=== PATIENT | female | born 1965 | race Caucasian/White ===

== ENCOUNTER → 2016-10-12 | Outpatient (CLI) | payer BC ==
--- NOTE | 2016-10-15 12:56 | MM ---
Reason for exam: screening (asymptomatic). Last mammogram was performed 10 years and 6 months ago. History: Took hormonal contraceptives for 1 year beginning at age 17. Physical Findings: A clinical breast exam by your physician is recommended on an annual basis and results should be correlated with mammographic findings. MG 3D Screening Mammo W/Cad Bilateral CC and MLO view(s) were taken. Prior study comparison: April 03, 2006, mammogram, performed at [facility]. There are scattered fibroglandular densities. Finding: There are typically benign round calcifications in the left breast. There is no discrete abnormality. ASSESSMENT: Benign, BI-RAD 2 RECOMMENDATION: Routine screening mammogram of both breasts in 1 year.
== END | disposition home or self-care (01) ==
LOC: RADMAMWWP 08:41
PROVIDERS: ATTEND Family Medicine
DX: Z12.31 Encounter for screening mammogram for malignant neoplasm of breast (principal)
CPT/HCPCS: 77063; G0202

== ENCOUNTER → 2017-05-03 | Outpatient (CLI) | payer BC ==
--- NOTE | 2017-05-03 19:59 | MR ---
EXAMINATION TYPE: MR lumbar spine wo con DATE OF EXAM: 05/03/2017 COMPARISON: NONE HISTORY: Acute back pain/dee hips x 3 weeks CONTRAST: 0 mL intravenous Gadavist. TECHNIQUE: Multiplanar, multisequence images of the lumbar spine were acquired. FINDINGS: Cord terminates L1 L5-S1: No significant disc bulge or disc herniation. No spinal canal stenosis. No foraminal stenosi s. . L4-L5: Broad-based disc bulge is present. This has moderate anterior thecal sac flattening. Facet hyp ertrophy with ligamentum flavum laxity has posterior lateral thecal sac compression and congenitally short pedicles are present. There is a grade 1 spondylolisthesis with disc uncovering. These factors are contributing to spinal canal stenosis. There is moderate right foraminal stenosis. L3-L4: No significant disc bulge or disc herniation. No spinal canal stenosis. No foraminal stenosi s. Facet hypertrophy with ligamentum flavum laxity has some posterior lateral thecal sac compression and mild lateral canal narrowing.. L2-L3: No significant disc bulge or disc herniation. No spinal canal stenosis. No foraminal stenosi s. Facet hypertrophy is posterior lateral thecal sac compression.. L1-L2: No significant disc bulge or disc herniation. No spinal canal stenosis. No foraminal stenosi s. . T12-L1: No significant disc bulge or disc herniation. No spinal canal stenosis. No foraminal stenos is. . IMPRESSION: 1. Grade 1 spondylolisthesis with disc uncovering and disc bulge, facet hypertrophy and ligamentum fl avum laxity and congenitally short pedicles contributing to moderate spinal canal stenosis L4-5. 2. Facet hypertrophy with ligamentum flavum laxity contributing to some lateral canal narrowing L3-4 and L2-3. 3. Right foraminal stenosis L4-5 secondary to facet hypertrophy and disc bulge.
== END | disposition home or self-care (01) ==
LOC: RADMRIMAIN 17:45
PROVIDERS: ATTEND Family Medicine
DX: M48.061 Spinal stenosis, lumbar region without neurogenic claudication (principal); M99.73 Connective tissue and disc stenosis of intervertebral foramina of lumbar region; M43.16 Spondylolisthesis, lumbar region; M51.26 Other intervertebral disc displacement, lumbar region
CPT/HCPCS: 72148

== ENCOUNTER 2019-01-12 13:55 | Emergency (ER) | payer OTHER ==
[2019-01-12 14:22] VITALS: RESP 18
[2019-01-12] MEDS ORDERED: IBUPROFEN 400 MG TAB PO STA (14:51)
--- NOTE | 2019-01-12 15:42 | XR ---
Lumbar spine HISTORY: Trauma and pain 3 views of the lumbar spine, correlation MR August 31, 2017 Patient shows posterior fusion changes at L4 -5, intervertebral spacing block is present. Anterolisthesis grade 1 L4-5. There is loss of disc heig ht at intervertebral levels. Lumbar vertebral bodies show preserved height. Laminectomies present at L4 and L5. IMPRESSION: Postop changes. No acute fracture or subluxation.
--- NOTE | 2019-01-12 15:43 | XR ---
Cervical spine HISTORY: Trauma, pain 5 views of the cervical spine Cervical vertebral bodies show preserved height and bone mineralization. Minimal anterolisthesis grad e 1 C3-4. Loss of disc height present at C4-5 and C5-6, there is associated spondylosis. Foraminal en croachment is present bilaterally at C4-5 and C5-6. Prevertebral soft tissues are normal. There is fa cet arthropathy change. IMPRESSION: No acute fracture or subluxation. Degenerative disc disease.
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
[2019-01-12 15:58] VITALS: BP 153/89; PULSE 66; TEMP 98
== END 2019-01-12 15:58 | disposition home or self-care (01) ==
LOC: EC 13:55
DX: M54.2 Cervicalgia (principal); M79.641 Pain in right hand; M79.642 Pain in left hand; R68.84 Jaw pain; R10.30 Lower abdominal pain, unspecified; Z98.1 Arthrodesis status; V43.52XA Car driver injured in collision with other type car in traffic accident, initial encounter; Y93.89 Activity, other specified; Y92.410 Unspecified street and highway as the place of occurrence of the external cause
CPT/HCPCS: 72050; 72100; 99284

== ENCOUNTER → 2019-05-12 | Outpatient (CLI) | payer OTHER ==
--- NOTE | 2019-05-13 14:52 | MM ---
Reason for exam: screening (asymptomatic). Last mammogram was performed 2 years and 7 months ago. History: Family history of breast cancer in maternal grandmother at age 65 and breast cancer in maternal aunt at age 58. Took hormonal contraceptives for 1 year beginning at age 17. Physical Findings: A clinical breast exam by your physician is recommended on an annual basis and results should be correlated with mammographic findings. MG 3D Screening Mammo W/Cad Bilateral CC and MLO view(s) were taken. Prior study comparison: October 12, 2016, bilateral MG 3d screening mammo w/cad. There are scattered fibroglandular densities. No significant changes when compared with prior studies. ASSESSMENT: Benign, BI-RAD 2 RECOMMENDATION: Routine screening mammogram of both breasts in 1 year.
== END | disposition home or self-care (01) ==
LOC: RADMAMWWP 13:22
PROVIDERS: ATTEND Family Medicine
DX: Z12.31 Encounter for screening mammogram for malignant neoplasm of breast (principal)
CPT/HCPCS: 77063; 77067

== ENCOUNTER → 2019-05-22 | Outpatient (CLI) | payer OTHER ==
--- NOTE | 2019-05-22 12:48 | ECHOS ---
STRESS ECHOCARDIOGRAM INDICATIONS: Chest pain, fatigue. MEDICATIONS: Lotrel, Lipitor, Paxil, omeprazole. BASELINE HEART RATE: 68 BASELINE BLOOD PRESSURE: 104/63 MAXIMUM HEART RATE: 141 MAXIMUM BLOOD PRESSURE: 148/79 85% MPHR: 140 100% MPHR: 165 METS: 10.3 MAXIMUM STAGE REACHED: 3 TOTAL EXERCISE TIME: 9:00 CLINICAL INFORMATION: Baseline heart rate 68 beats per minute. Baseline blood pressure 104/63 mmHg. Baseline ECG shows normal sinus rhythm with normal cardiac intervals. Patient exercised on a Isra protocol for 9 minutes achieving a peak heart rate of 141 beats per minute. Normal blood pressure response to exercise. There was no ECG evidence for ischemia. No arrhythmias were noted. Baseline 2D echo images showed normal LV size systolic function without segmental wall motion abnormalities. At peak exercise, there was excellent augmentation of overall LV contractility without development of any wall motion abnormalities. At recovery, regional global LV systolic function remained normal. IMPRESSION: Good exercise capacity. No ECG or echocardiographic evidence for ischemia. MMODL / IJN: [id number] /
== END | disposition home or self-care (01) ==
LOC: RADNMMAIN 09:00
PROVIDERS: ATTEND Nurse Practitioner Family
DX: R53.83 Other fatigue (principal)
CPT/HCPCS: 93351

== ENCOUNTER 2020-02-06 12:09 | Emergency (ER) | payer OTHER ==
[2020-02-06 12:17] VITALS: BP 163/92; PULSE 79; RESP 20; TEMP 98.3
--- NOTE | 2020-02-06 12:43 | ED ---
General Adult HPI - General Chief complaint: Neuro Symptoms/Deficit Stated complaint: leg weakness Time Seen by Provider: 02/06/20 12:29 Source: patient, family, RN notes reviewed Mode of arrival: ambulatory Limitations: no limitations - History of Present Illness Initial comments: Patient is a pleasant 54 female presenting to the emergency department c omplaining of weakness. Onset of weakness was around 3 weeks ago. Patient did receive flu shot around 1 week prior to that.patient is only able to walk 5 or 10 feet secondary to weakness. Patient does get a little bit fatigued as well. Weakness seems more in her right leg than her left. Patient saw her steady and was placed on steroids without improvement of symptoms. Patient also feels like her arms may be a little bit weak. Patient states is difficult to put on her shoes because her feet are weak. Patient feels like the distal extremities are more weak than the proximal extremities. No history of similar symptoms previously. No recent illness. - Related Data Home Medications Medication Instructions Recorded Confirmed Acetaminophen/Diphenhydramine 2 tab PO HS 01/12/19 02/05/20 [Tylenol PM 500-25mg] Omeprazole 20 mg PO DAILY 01/12/19 02/05/20 PARoxetine HCL [Paxil Cr] 25 mg PO DAILY 01/12/19 02/05/20 amLODIPine BESYLATE/BENAZEPRIL 1 cap PO DAILY 01/12/19 02/05/20 [Lotrel 5-40 MG] predniSONE See Taper PO DIRECTED 02/05/20 02/05/20 Allergies Allergy/AdvReac Type Severity Reaction Status Date / Time No Known Allergies Allergy Verified 02/06/20 12:17 Review of Systems ROS Statement: Those systems with pertinent positive or pertinent negative responses have been documented in the HPI. ROS Other: All systems not noted in ROS Statement are negative. Constitutional: Denies: fever Eyes: Denies: eye pain ENT: Denies: ear pain Respiratory: Denies: cough, dyspnea Cardiovascular: Denies: chest pain Endocrine: Reports: fatigue Gastrointestinal: Denies: abdominal pain Genitourinary: Denies: dysuria Musculoskeletal: Reports: back pain (mild back pain rated 2/10 which is much less than her previous chronic pain) Skin: Denies: rash Neurological: Reports: as per HPI, weakness. Denies: headache, paresthesias Past Medical History Past Medical History: Hypertension, Musculoskeletal Disorder Additional Past Medical History / Comment(s): saw Aliza recently, he put her on steroids, has MRI scheduled for Saturday History of Any Multi-Drug Resistant Organisms: None Reported Past Surgical History: Back Surgery, Section, Tubal Ligation Additional Past Surgical History / Comment(s): spinal fusion 2018 w/Mar Past Anesthesia/Blood Transfusion Reactions: No Reported Reaction Past Psychological History: No Psychological Hx Reported Smoking Status: Never smoker Past Alcohol Use History: None Reported Past Drug Use History: None Reported General Exam Limitations: no limitations General appearance: alert, in no apparent distress Head exam: Present: normocephalic Eye exam: Present: normal appearance, PERRL, EOMI. Absent: nystagmus Neck exam: Present: normal inspection. Absent: tenderness Respiratory exam: Present: normal lung sounds bilaterally Cardiovascular Exam: Present: regular rate, normal rhythm GI/Abdominal exam: Present: soft. Absent: tenderness Extremities exam: Present: normal inspection, full ROM. Absent: tenderness Back exam: Present: normal inspection. Absent: tenderness, vertebral tenderness Neurological exam: Present: alert, oriented X3, CN II-XII intact Expanded Neurological exam: Present: protecting the airway Speech: Present: fluid speech Cranial nerves: EOM's Intact: Normal Sensory exam: Upper Extremity Light Touch: Normal, Lower Extremity Light Touch: Normal Motor strength exam: RUE: 5, LUE: 5, RLE: 4, LLE: 4 Eye Response: (4) open spontaneously Motor Response: (6) obeys commands Verbal Response: (5) oriented Psychiatric exam: Present: normal affect, normal mood Skin exam: Present: normal color Course Vital Signs 02/06/20 12:12 Temperature 98.3 F Pulse Rate 79 Respiratory 20 Rate Blood Pressure 163/92 O2 Sat by Pulse 100 Oximetry EKG Findings - EKG Comments: EKG Findings:: normal sinus rhythm at 73. VT 150. QRS 62. QT 390. QTC 420 9P left axis. LVH criteria. Inferior Q waves. Q waves in leads V3 through V6. No acute ST change. Medical Decision Making - Medical Decision Making patient reevaluated and resting comfortably in bed. Patient unchanged. Patient updated on results and plan. Case was discussed with Dr. Shrestha who is agreeable to transfer to [facility]. Case also discussed with Dr. Lopez, who will accept transfer. 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 We do not have neurology or treatment available for that. - Lab Data Result diagrams: 02/06/20 12:40 02/06/20 12:40 Lab Results 02/06/20 02/06/20 02/06/20 Range/Units 12:40 12:40 12:40 WBC 6.6 (3.8-10.6) k/uL RBC 4.76 (3.80-5.40) m/uL Hgb 11.1 L (11.4-16.0) gm/dL Hct 36.1 (34.0-46.0) % MCV 75.9 L (80.0-100.0) fL MCH 23.3 L (25.0-35.0) pg MCHC 30.7 L (31.0-37.0) g/dL RDW 16.7 H (11.5-15.5) % Plt Count 370 (150-450) k/uL MPV 7.0 Neutrophils % 86 % Lymphocytes % 11 % Monocytes % 1 % Eosinophils % 1 % Basophils % 0 % Neutrophils # 5.7 (1.3-7.7) k/uL Lymphocytes # 0.7 L (1.0-4.8) k/uL Monocytes # 0.1 (0-1.0) k/uL Eosinophils # 0.1 (0-0.7) k/uL Basophils # 0.0 (0-0.2) k/uL Hypochromasia Marked Anisocytosis Slight Microcytosis Slight PT 10.0 (9.0-12.0) sec INR 1.0 (<1.2) APTT 21.2 L (22.0-30.0) sec Sodium (137-145) mmol/L Potassium (3.5-5.1) mmol/L Chloride (98-107) mmol/L Carbon Dioxide (22-30) mmol/L Anion Gap mmol/L BUN (7-17) mg/dL Creatinine (0.52-1.04) mg/dL Est GFR (CKD-EPI)AfAm (>60 ml/min/1.73 sqM) Est GFR (CKD-EPI)NonAf (>60 ml/min/1.73 sqM) Glucose (74-99) mg/dL Calcium (8.4-10.2) mg/dL Total Bilirubin (0.2-1.3) mg/dL AST (14-36) U/L ALT (4-34) U/L Alkaline Phosphatase (38-126) U/L Creatine Kinase (30-135) U/L Troponin I (0.000-0.034) ng/mL Total Protein (6.3-8.2) g/dL Albumin (3.5-5.0) g/dL Urine Color Light Yellow Urine Appearance Cloudy H (Clear) Urine pH 6.5 (5.0-8.0) Ur Specific Monument 1.006 (1.001-1.035) Urine Protein Negative (Negative) Urine Glucose (UA) Negative (Negative) Urine Ketones Negative (Negative) Urine Blood Small H (Negative) Urine Nitrite Negative (Negative) Urine Bilirubin Negative (Negative) Urine Urobilinogen <2.0 (<2.0) mg/dL Ur Leukocyte Esterase Small H (Negative) Urine RBC 1 (0-5) /hpf Urine WBC 3 (0-5) /hpf Ur Squamous Epith Cells 8 H (0-4) /hpf Urine Bacteria Few H (None) /hpf Urine Mucus Rare H (None) /hpf 02/06/20 02/06/20 Range/Units 12:40 12:40 WBC (3.8-10.6) k/uL RBC (3.80-5.40) m/uL Hgb (11.4-16.0) gm/dL Hct (34.0-46.0) % MCV (80.0-100.0) fL MCH (25.0-35.0) pg MCHC (31.0-37.0) g/dL RDW (11.5-15.5) % Plt Count (150-450) k/uL MPV Neutrophils % % Lymphocytes % % Monocytes % % Eosinophils % % Basophils % % Neutrophils # (1.3-7.7) k/uL Lymphocytes # (1.0-4.8) k/uL Monocytes # (0-1.0) k/uL Eosinophils # (0-0.7) k/uL Basophils # (0-0.2) k/uL Hypochromasia Anisocytosis Microcytosis PT (9.0-12.0) sec INR (<1.2) APTT (22.0-30.0) sec Sodium 137 (137-145) mmol/L Potassium 4.4 (3.5-5.1) mmol/L Chloride 104 (98-107) mmol/L Carbon Dioxide 24 (22-30) mmol/L Anion Gap 9 mmol/L BUN 15 (7-17) mg/dL Creatinine 0.73 (0.52-1.04) mg/dL Est GFR (CKD-EPI)AfAm >90 (>60 ml/min/1.73 sqM) Est GFR (CKD-EPI)NonAf >90 (>60 ml/min/1.73 sqM) Glucose 168 H (74-99) mg/dL Calcium 9.6 (8.4-10.2) mg/dL Total Bilirubin 0.4 (0.2-1.3) mg/dL AST 24 (14-36) U/L ALT 18 (4-34) U/L Alkaline Phosphatase 83 (38-126) U/L Creatine Kinase 110 (30-135) U/L Troponin I <0.012 (0.000-0.034) ng/mL Total Protein 7.8 (6.3-8.2) g/dL Albumin 5.0 (3.5-5.0) g/dL Urine Color Urine Appearance (Clear) Urine pH (5.0-8.0) Ur Specific Monument (1.001-1.035) Urine Protein (Negative) Urine Glucose (UA) (Negative) Urine Ketones (Negative) Urine Blood (Negative) Urine Nitrite (Negative) Urine Bilirubin (Negative) Urine Urobilinogen (<2.0) mg/dL Ur Leukocyte Esterase (Negative) Urine RBC (0-5) /hpf Urine WBC (0-5) /hpf Ur Squamous Epith Cells (0-4) /hpf Urine Bacteria (None) /hpf Urine Mucus (None) /hpf - Radiology Data Radiology results: report reviewed (computed tomography scan of the brain shows no acute abnormality. Computed tomography scan of lumbar spine shows postoperative changes. Spinal stenosis. No mass. Lumbar segments intact.), image reviewed (Chest x-ray shows no acute process) Disposition Clinical Impression: Leg weakness Disposition: OTHER INSTITUTION NOT DEFINED Is patient prescribed a controlled substance at d/c from ED?: No Referrals: Dion White MD [Primary Care Provider] - 1-2 days Time of Disposition: 15:14 - Out of Hospital Transfer - Req. Specs Out of Hospital Transfer - Requested Specifics: Other Emergency Center
--- NOTE | 2020-02-06 13:10 | CT ---
EXAMINATION TYPE: CT brain wo con DATE OF EXAM: 02/06/2020 COMPARISON: None HISTORY: Leg numbness and weakness CT DLP: 1070.4 mGycm Automated exposure control for dose reduction was used. Helical imaging through the brain. 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 There is no hemorrhage or hydrocephalus. Calvarium is intact. Orbits show symmetric appearance. Paranasal sinuses and masto id air cells are well aerated. Prominent CSF space cephalad to the cerebellum could possibly represen t a small arachnoid cyst. IMPRESSION: NO ACUTE ABNORMALITIES EVIDENT, CONSIDER MRI INDICATED.
--- NOTE | 2020-02-06 13:24 | CT ---
EXAMINATION TYPE: CT lumbar spine wo con DATE OF EXAM: 02/06/2020 COMPARISON: Plain film 01/12/2019 HISTORY: leg numbness CT DLP: 975.2 mGycm Automated exposure control for dose reduction was used. An unenhanced CT of the lumbar spine was performed. Bone and soft tissue window settings are submitt ed as well as coronal and sagittal reconstructions. FINDINGS: Patient is status post posterior fusion at L4-5, the listhesis shows a similar appearance, interverte bral spacing block is noted. There is artifact due to the metallic density. Lumbar vertebral bodies a re intact. L1-L2: Normal disc space height. No disc herniation protrusion or central stenosis. No facet joint arthropathy. No evidence for foraminal encroachment. L2-L3: Posterior broad-based disc bulge is present causing anterior mass effect on the thecal sac res ulting in moderate spinal stenosis. There is some associated facet arthropathy change with hypertroph y ligamentum flavum causing posterior lateral mass effect on the thecal sac. Circumferential extensio n of disc material causes some foraminal encroachment. L3-L4: Posterior broad-based disc bulge with hypertrophic change of the ligamentum flavum results in concentric spinal stenosis, moderate to severe. Circumferential extension disc material causes some f oraminal encroachment. L4-L5: Normal disc space height. No disc herniation protrusion or central stenosis. No facet joint arthropathy. No evidence for foraminal encroachment. L5-S1: Normal disc space height. No disc herniation protrusion or central stenosis. No facet joint arthropathy. No evidence for foraminal encroachment. IMPRESSION: Postop changes. Spinal stenosis and additional findings above. No paraspinal masses are identified. Lumbar segments are intact.
[2020-02-06 13:32] LABS: Anisocytosis Slight; Basophils % (A) 0 %; Eosinophils # (A) 0.1 k/uL (0-0.7); Eosinophils % (A) 1 %; HCT 36.1 % (34.0-46.0); HGB 11.1 gm/dL (11.4-16.0); Hypochromasia Marked; Lymphocytes # (A) 0.7 k/uL (1.0-4.8); Lymphocytes % (A) 11 %; MCH 23.3 pg (25.0-35.0); MCHC 30.7 g/dL (31.0-37.0); MCV 75.9 fL (80.0-100.0); Microcytosis Slight; Monocytes # (A) 0.1 k/uL (0-1.0); Monocytes % (A) 1 %; Neutrophils # (A) 5.7 k/uL (1.3-7.7); Neutrophils % (A) 86 %; Platelet Count 370 k/uL (150-450); RBC 4.76 m/uL (3.80-5.40); RDW 16.7 % (11.5-15.5); WBC 6.6 k/uL (3.8-10.6)
--- NOTE | 2020-02-06 13:38 | XR ---
EXAMINATION TYPE: XR chest 2V DATE OF EXAM: 02/06/2020 COMPARISON: NONE HISTORY: Altered mental status and leg numbness TECHNIQUE: Frontal and lateral views of the chest are obtained. FINDINGS: There is no focal air space opacity, pleural effusion, or pneumothorax seen. The cardiac silhouette size is within normal limits. The osseous structures are intact. IMPRESSION: No acute cardiopulmonary process.
[2020-02-06 13:41] LABS: ALT 18 U/L (4-34); AST 24 U/L (14-36); African American GFR (CKD) >90 (>60 ml/min/1.73 sqM); Alkaline Phosphatase 83 U/L (38-126); Anion Gap 9 mmol/L; Blood Urea Nitrogen 15 mg/dL (7-17); Calcium 9.6 mg/dL (8.4-10.2); Carbon Dioxide 24 mmol/L (22-30); Chloride 104 mmol/L (98-107); Creatine Kinase 110 U/L (30-135); Glucose 168 mg/dL (74-99); Non-African American GFR(CKD) >90 (>60 ml/min/1.73 sqM); Potassium 4.4 mmol/L (3.5-5.1); Sodium 137 mmol/L (137-145); Total Bilirubin 0.4 mg/dL (0.2-1.3); Total Protein 7.8 g/dL (6.3-8.2)
[2020-02-06 14:06] LABS: Appearance,Urine Cloudy (Clear); Bacteria,Urine Few /hpf; Bilirubin,Urine Negative (Negative); Blood,Urine Small (Negative); Color,Urine Light Yellow; Glucose,Urine (UA) Negative (Negative); Ketones,Urine Negative (Negative); Leukocyte Esterase,Urine Small (Negative); Mucus,Urine Rare /hpf; Nitrite,Urine Negative (Negative); PH, Urine 6.5 (5.0-8.0); Partial Thromboplastin Time 21.2 sec (22.0-30.0); Protein,Urine Negative (Negative); RBC,Urine 1 /hpf (0-5); Specific Gravity,Urine 1.006 (1.001-1.035); Squamous Epithelial Cell,Urine 8 /hpf (0-4); Urobilinogen,Urine <2.0 mg/dL (<2.0); WBC,Urine 3 /hpf (0-5)
== END 2020-02-06 15:45 | disposition other institution (70) ==
LOC: EC 12:09
DX: M62.81 Muscle weakness (generalized) (principal); I10 Essential (primary) hypertension; Z79.52 Long term (current) use of systemic steroids; Z79.899 Other long term (current) drug therapy
CPT/HCPCS: 36415; 70450; 71046; 72131; 80053; 81001; 82550; 84484; 85025; 85610; 85730; 93005; 99285

== ENCOUNTER → 2023-01-25 | Outpatient (CLI) | payer OTHER ==
--- NOTE | 2023-01-28 08:08 | MM ---
Reason for Exam: Screening (asymptomatic). Last mammogram was performed 3 year(s) and 9 month(s) ago. Patient History: Menarche at age 9. First Full-Term at age 26. Postmenopausal. Patient has history of breast feeding. Hormonal Contraceptives, starting at age 17 for 1 year. Maternal grandmother had breast cancer, age 65. Maternal aunt had breast cancer, age 58. Risk Values: Lisseth 5 year model risk: 1.6%. NCI Lifetime model risk: 9.3%. Prior Study Comparison: 04/03/2006 Screening Mammogram, [facility]. 10/12/2016 Bilateral Screening Mammogram, [facility]. 05/12/2019 Bilateral Screening Mammogram, [facility]. Tissue Density: The breast tissue is heterogeneously dense. This may lower the sensitivity of mammography. Findings: Analyzed By CAD. There is no suspicious group of microcalcifications or new suspicious mass. Benign-appearing calcifications bilaterally. Overall Assessment: Negative, BI-RAD 1 Management: Screening Mammogram of both breasts in [address] [facility] will attempt to contact patient to return for supplemental views and ultrasound if indicated. Patient should continue monthly self-breast exams. A clinical breast exam by your physician is recommended on an annual basis. This exam should not preclude additional follow-up of suspicious palpable abnormalities. Note on Lisseth scores and lifetime risk: 1. A Lisseth score greater than 3% is considered moderate risk. If this is the case, consider specialist referral to assess eligibility for a risk reducing agent. 2. If overall lifetime risk for the development of breast cancer is 20% or higher, the patient may qualify for future screening with alternating mammogram and breast MRI. Electronically signed and approved by: Rodney Weiss DO
== END | disposition home or self-care (01) ==
LOC: RADMAMWWP 16:33
PROVIDERS: ATTEND Internal Medicine
DX: Z12.31 Encounter for screening mammogram for malignant neoplasm of breast (principal); Z78.0 Asymptomatic menopausal state; Z80.3 Family history of malignant neoplasm of breast
CPT/HCPCS: 77063; 77067